=== PATIENT | male | born 1955 | race Native Hawaiian/Other Pacific Islander ===

== ENCOUNTER 2017-07-16 11:44 | Emergency (ER) | payer BC ==
[~2017-07-16] VITALS: Ht 162.6 cm; Wt 70.0 kg
[~2017-07-16 11:44] MED LIST: LORT7.5T3 PO; NAPR550 PO; ONDA1TAB16 PO; THYROID MEDICINE PO
[2017-07-16 11:45] VITALS: BP 148/96; PULSE 78; RESP 14; TEMP 98.9; O2SAT 99
[2017-07-16] MEDS ORDERED: IOHEXOL 350 MG/ML 10 ML VIAL (for RAD DIAG) IVCONTRAST ONE (11:45)
--- NOTE | 2017-07-16 12:04 | PD ---
HPI Chief Complaint: Abdominal Pain Time Seen by Provider: 11:57 Travel History International Travel<30 days: No Contact w/Intl Traveler<30days: No Traveled to known affect area: No History of Present Illness HPI 61-year-old male presents emergency Department with complaint of right lower quadrant abdominal pain onset this morning. Reports nausea, intermittently, without vomiting. Denies nausea at this time. Denies fevers. Denies dysuria. Denies change in stool and had a normal bowel movement this morning without hematochezia. Pain is continuous. Pain aggravated with palpation this morning. Pain at its worse this morning was 8/10. Rates pain now 2/10. Has not taken any medications or tried any treatments to alleviate his symptoms. Describes the pain as an ache. History of kidney stones. Denies history of abdominal surgeries. No known allergies. Primary care provider is Dr. Vides. History of hypertension, hypothyroidism, glaucoma. Has no other medical complaints. No other modifying factors or associated signs and symptoms. PFSH Past Medical History Cardiovascular Problems: Yes (HTN) Thyroid Disease: Yes Social History Alcohol Use: No Tobacco Use: No Substance Use: No Allergies-Medications (Allergen,Severity, Reaction): Coded Allergies: No Known Allergies (Verified Adverse Reaction, Unknown, 07/16/17) Reported Meds & Prescriptions Reported Meds & Active Scripts Active Flomax (Tamsulosin HCl) 0.4 Mg Cap 0.4 Mg PO HS 7 Days [place] (Hydrocodone-Acetaminophen) 5 Mg-325 Mg Tab 1 Tab PO Q4H PRN Reported Fenofibrate 40 Mg Tab 134 Mg PO DAILY Latanoprost Opth Drops (Latanoprost) 0.005% Drops 1 Drop EACH EYE HS Refrigerate until opened. Vitamin C (Ascorbic Acid) 1,000 Mg Tablet.er 1 Tab PO DAILY Fish Oil + D3 (Fish Oil-Cholecalciferol) 1,200-1,000 Mg-Unit Cap 1 Cap PO DAILY Levothyroxine (Levothyroxine Sodium) 100 Mcg Tab 100 Mcg PO DAILY Losartan (Losartan Potassium) 100 Mg Tab 100 Mg PO DAILY Review of Systems Except as stated in HPI: all other systems reviewed are Neg Physical Exam Narrative GENERAL: Well-nourished, well-developed male patient, in no acute distress; afebrile, nontoxic-appearing SKIN: Warm and dry. HEAD: Atraumatic. Normocephalic. EYES: Pupils equal and round. No scleral icterus. No injection or drainage. ENT: Mucosa pink and moist. Airway patent. NECK: Trachea midline. CARDIOVASCULAR: Regular rate and rhythm. No murmur appreciated. RESPIRATORY: No accessory muscle use. Clear to auscultation. Breath sounds equal bilaterally. GASTROINTESTINAL: Abdomen soft, non-tender, nondistended. Hepatic and splenic margins not palpable. No rebound tenderness. No guarding. Nonrigid. Bowel sounds are active 4 quadrants. BACK: No CVA tenderness MUSCULOSKELETAL: No obvious deformities. No clubbing. No cyanosis. No edema. NEUROLOGICAL: Awake and alert. Oriented 3. No obvious cranial nerve deficits. Motor grossly within normal limits. Normal speech. PSYCHIATRIC: Appropriate mood and affect; insight and judgment normal. Data Data Last Documented VS Vital Signs Date Time Temp Pulse Resp B/P (MAP) Pulse Ox O2 Delivery O2 Flow Rate FiO2 07/16/17 14:59 70 14 138/99 (112) 99 Room Air 07/16/17 11:45 98.9 Orders Orders Complete Blood Count With Diff (07/16/17 12:05) Comprehensive Metabolic Panel (07/16/17 12:05) Lipase (07/16/17 12:05) Prothrombin Time / Inr (Pt) (07/16/17 12:05) Act Partial Throm Time (Ptt) (07/16/17 12:05) Urinalysis - C+S If Indicated (07/16/17 12:05) Ct Abd/Pel W Iv Contrast(Rout) (07/16/17 12:05) Iv Access Insert/Monitor (07/16/17 12:05) Sodium Chlor 0.9% 1000 Ml Inj (Ns 1000 M (07/16/17 12:05) Sodium Chloride 0.9% Flush (Ns Flush) (07/16/17 12:15) Iohexol 350 Inj (Omnipaque 350 Inj) (07/16/17 11:45) Ed Discharge Order (07/16/17 15:47) Labs Laboratory Tests Test 07/16/17 12:30 White Blood Count 8.2 TH/MM3 Red Blood Count 4.73 MIL/MM3 Hemoglobin 14.5 GM/DL Hematocrit 41.9 % Mean Corpuscular Volume 88.5 FL Mean Corpuscular Hemoglobin 30.5 PG Mean Corpuscular Hemoglobin Concent 34.5 % Red Cell Distribution Width 13.3 % Platelet Count 191 TH/MM3 Mean Platelet Volume 9.6 FL Neutrophils (%) (Auto) 76.7 % Lymphocytes (%) (Auto) 16.1 % Monocytes (%) (Auto) 6.8 % Eosinophils (%) (Auto) 0.1 % Basophils (%) (Auto) 0.3 % Neutrophils # (Auto) 6.3 TH/MM3 Lymphocytes # (Auto) 1.3 TH/MM3 Monocytes # (Auto) 0.6 TH/MM3 Eosinophils # (Auto) 0.0 TH/MM3 Basophils # (Auto) 0.0 TH/MM3 CBC Comment DIFF FINAL Differential Comment Prothrombin Time 11.3 SEC Prothromb Time International Ratio 1.0 RATIO Activated Partial Thromboplast Time 25.7 SEC Urine Color YELLOW Urine Turbidity CLEAR Urine pH 5.5 Urine Specific [place] 1.015 Urine Protein TRACE mg/dL Urine Glucose (UA) NEG mg/dL Urine Ketones NEG mg/dL Urine Occult Blood NEG Urine Nitrite NEG Urine Bilirubin NEG Urine Urobilinogen LESS THAN 2.0 MG/DL Urine Leukocyte Esterase NEG Urine RBC 2 /hpf Urine WBC LESS THAN 1 /hpf Microscopic Urinalysis Comment CULT NOT INDICATED Blood Urea Nitrogen 28 MG/DL Creatinine 1.97 MG/DL Random Glucose 94 MG/DL Total Protein 7.3 GM/DL Albumin 3.4 GM/DL Calcium Level 8.7 MG/DL Alkaline Phosphatase 110 U/L Aspartate Amino Transf (AST/SGOT) 21 U/L Alanine Aminotransferase (ALT/SGPT) 33 U/L Total Bilirubin 0.5 MG/DL Sodium Level 142 MEQ/L Potassium Level 4.6 MEQ/L Chloride Level 108 MEQ/L Carbon Dioxide Level 27.2 MEQ/L Anion Gap 7 MEQ/L Estimat Glomerular Filtration Rate 35 ML/MIN Lipase 80 U/L [facility] Medical Decision Making Medical Screen Exam Complete: Yes Emergency Medical Condition: Yes Medical Record Reviewed: Yes Differential Diagnosis Appendicitis, cholelithiasis, Narrative Course 61-year-old male with right lower quadrant abdominal pain. I was unable to elicit any pain on physical exam. No rebound tenderness. Discussed the plan of care with my attending physician, Dr. Davis, and he agrees. IV saline obtained. CBC, CMP, lipase, urinalysis, IV fluid bolus, CT abdomen soft pelvis ordered. 1441: CBC, CMP unremarkable. Lipase 80. BUN 28. Creatinine 1.97. GFR 35. Urinalysis without signs of infection. 1542: CT abdomen/pelvis concludes: Patient's symptoms appear to be due to a 6 mm right ureteric stone at the level of L5 with resulting right-sided hydronephrosis and hydroureter. Patient provided a copy of the CT report. Lortab and Flomax prescribed for home. Instructed patient to follow up with urology. Instructed patient to follow up with primary care provider. Patient verbalizes understanding and agreement with treatment plan. Patient is medically cleared and stable for discharge. Discussed reasons to return to the emergency department. Patient agrees with treatment plan. The patients vital signs are stable and the patient is stable for outpatient follow-up and treatment. Patient discharged home, stable and in no acute distress. Diagnosis Primary Impression: Ureteric stone Referrals: Primary Care Physician Urologist Patient Instructions: General Instructions, Ureteral Stones (ED) Additional Instructions: Ibuprofen as needed and as directed to reduce pain Drink plenty of fluids Strain urine Follow-up with primary care provider Follow-up with urology Return to the emergency department immediately with worsening of symptoms Med/Other Pt SpecificInfo: Prescription(s) given Scripts Tamsulosin (Flomax) 0.4 Mg Cap 0.4 MG PO HS for Manage Prostate Problems for 7 Days, #30 CAP 0 Refills Prov: Chikis Guzman 07/16/17 Hydrocodone-Acetaminophen ([place]) 5 Mg-325 Mg Tab 1 TAB PO Q4H Y for PAIN, #15 TAB 0 Refills Prov: Chikis Guzman 07/16/17 Disposition: 01 DISCHARGE HOME Condition: Stable Chikis Guzman Jul 16, 2017 12:04
[2017-07-16] MEDS ORDERED: SODIUM CHLOR 0.9% 1000 ML INJ 1,000 ML IV SCH (12:05)
[2017-07-16] MEDS ORDERED: SODIUM CHLORIDE 0.9% FLUSH 10 ML FLUSH IV FLUSH PRN (12:15)
[2017-07-16] MEDS ORDERED: FENO1TAB46 PO (12:23)
[2017-07-16] MEDS ORDERED: LOSA100T PO (12:23)
[2017-07-16] MEDS ORDERED: LATA0.002 EACH EYE (12:23)
[2017-07-16] MEDS ORDERED: LEVO100T5 PO (12:23)
[2017-07-16] MEDS ORDERED: FISHCAP4 PO (12:23)
[2017-07-16] MEDS ORDERED: ASCO100029 PO (12:23)
[2017-07-16 12:51] LABS: AUTOMATED NEUTROPHIL # 6.3 TH/MM3 (1.8-7.7); BASOPHIL % 0.3 % (0.0-2.0); EOSINOPHIL % 0.1 % (0.0-4.0); HEMATOCRIT 41.9 % (39.0-51.0); HEMO FLAGS DIFF FINAL; LYMPH % 16.1 % (9.0-44.0); LYMPHOCYTE # 1.3 TH/MM3 (1.0-4.8); MEAN CELL VOLUME 88.5 FL (80.0-100.0); MEAN CORPUSCULAR HEMOGLOBIN 30.5 PG (27.0-34.0); MEAN CORPUSCULAR HGB CONC 34.5 % (32.0-36.0); MONO % 6.8 % (0.0-8.0); NEUT % 76.7 % (16.0-70.0); PLATELET COUNT 191 TH/MM3 (150-450); RED BLOOD COUNT 4.73 MIL/MM3 (4.50-5.90); RED CELL DISTRIBUTION WIDTH 13.3 % (11.6-17.2); WHITE BLOOD COUNT 8.2 TH/MM3 (4.0-11.0)
[2017-07-16 12:57] LABS: BLOOD, URINE NEG (NEG); GLUCOSE,URINE NEG (NEG); KETONE, URINE NEG (NEG); NITRITE,URINE NEG (NEG); PH, URINE 5.5 (5.0-8.5); URINE COLOR YELLOW (YELLW/STRAW)
[2017-07-16 12:58] LABS: APTT (PATIENT) 25.7 SEC (24.3-30.1); PROTHROMBIN TIME - PATIENT 11.3 SEC (9.8-11.6)
[2017-07-16 13:00] LABS: COMMENT (UR) CULT NOT INDICATED; CULTURE IF INDICATED CULT NOT INDICATED
[2017-07-16 13:03] LABS: ANION GAP 7 MEQ/L (5-15); AST (GOT) 21 U/L (15-37); BICARBONATE 27.2 MEQ/L (21.0-32.0); BLOOD UREA NITROGEN 28 MG/DL (7-18); CHLORIDE 108 MEQ/L (98-107); GLOMERULAR FILTRATION RATE 35 ML/MIN (>89); POTASSIUM 4.6 MEQ/L (3.5-5.1); SODIUM (NA) 142 MEQ/L (136-145)
[2017-07-16 13:04] LABS: ALT (GPT) 33 U/L (12-78)
[2017-07-16 13:07] LABS: ALKALINE PHOSPHATASE 110 U/L (45-117); TOTAL BILIRUBIN ADULT 0.5 MG/DL (0.2-1.0)
[2017-07-16 14:59] VITALS: BP 138/99; PULSE 70; RESP 14; O2SAT 99
--- NOTE | 2017-07-16 15:37 | RADRPT ---
EXAM DATE/TIME: 07/16/2017 14:44 [place] COMPARISON: No previous studies available for comparison. INDICATIONS : Right lower quadrant pain. IV CONTRAST: 80 cc Omnipaque 350 (iohexol) IV ORAL CONTRAST: No oral contrast ingested. RADIATION DOSE: 5.95 CTDIvol (mGy) MEDICAL HISTORY : Cardiovascular disease. Hypertension. SURGICAL HISTORY : None. ENCOUNTER: Initial ACUITY: 1 day PAIN SCALE: 6/10 LOCATION: Right lower quadrant TECHNIQUE: Volumetric scanning of the abdomen and pelvis was performed. Using automated exposure control and ad justment of the mA and/or kV according to patient size, radiation dose was kept as low as reasonably achievable to obtain optimal diagnostic quality images. DICOM format image data is available electro nically for review and comparison. FINDINGS: LOWER LUNGS: The visualized lower lungs are clear. LIVER: Homogeneous density without lesion. There is no dilation of the biliary tree. No calcified gallston es. SPLEEN: Normal size without lesion. PANCREAS: Within normal limits. KIDNEYS: Normal in size and shape. Right-sided hydronephrosis and hydroureter due to a 6 mm stone positioned a t approximately the L5 level of the right ureter. Left kidney and collecting system are radiographica lly normal. ADRENAL GLANDS: Within normal limits. VASCULAR: There is no aortic aneurysm. BOWEL/MESENTERY: The stomach, small bowel, and colon demonstrate no acute abnormality. There is no free intraperitone al air or fluid. ABDOMINAL WALL: Within normal limits. RETROPERITONEUM: There is no lymphadenopathy. BLADDER: No wall thickening or mass. REPRODUCTIVE: Within normal limits. INGUINAL: There is no lymphadenopathy or hernia. MUSCULOSKELETAL: Within normal limits for patient age. CONCLUSION: Patient's symptoms appear to be due to a 6 mm right ureteric stone at the level of L5 with resul ting right-sided hydronephrosis and hydroureter. Dann Mcgee MD on July 16, 2017 at 15:32 Board Certified Radiologist. This report was verified electronically.
[2017-07-16] MEDS ORDERED: TAMS5CAP PO (15:45)
[2017-07-16] MEDS ORDERED: NORC5TAB PO (15:45)
== END 2017-07-16 16:28 | disposition home or self-care (01) ==
LOC: NEPD 11:44
DX: N13.2 Hydronephrosis with renal and ureteral calculous obstruction (principal); I10 Essential (primary) hypertension; E03.9 Hypothyroidism, unspecified; H40.9 Unspecified glaucoma
CPT/HCPCS: 74177; 80053; 81001; 83690; 85025; 85610; 85730; 96360; 99285; J7030; Q9967